=== PATIENT | female | born 2000 | race Caucasian/White ===

== ENCOUNTER 2025-09-03 21:06 | Emergency (ER) | payer OTHER, SELFPAY ==
[2025-09-03 22:01] VITALS: BP 116/80; PULSE 104; RESP 18; TEMP 37.4; O2SAT 98; BMI 26.3
[2025-09-03 23:19] LABS: Collection Type, Urine Clean Catch
[2025-09-03 23:32] LABS: Bacteria,Urine Rare; Bilirubin,Urine Negative (Negative); Blood,Urine 2+ (Negative); Clarity,Urine Clear (Clear/Hazy); Color,Urine Lt-Yellow (Lt Yel-Yel); Glucose, Urine Negative (Negative); Ketones,Urine Negative (Negative); Leukocyte Esterase,Urine Positive (Negative); Nitrite,Urine Negative (Negative); PH,Urine 6.5 (5.0-7.0); Protein,Urine Negative (Neg - Trace); RBC,Urine 8 /hpf (0-3); Specific Gravity,Urine 1.004 (1.001-1.035); Squamous Epithelial Cell,Urine 1 /hpf (0-5); Urobilinogen,Urine Negative mg/dL (0.0-1.0); WBC,Urine 39 /hpf (0-5)
--- NOTE | 2025-09-03 23:44 | PD.EDADULT ---
ED General RME/HPI General Chief complaint: General Adult/Misc Complain Stated complaint: FEVER, BACK PAIN Time Seen by Provider: 09/03/25 22:01 Source: patient and family Arrival date/time: 09/03/25 21:06 Mode of arrival: ambulatory Limitations: no limitations RME / HPI RME / HPI narrative: This patient is a pleasant 24-year-old female who arrives to the ED today for evaluation of back pain that radiates to her stomach as well as intermittent fever events for the past 2 days. Patient states intermittent nausea over that time as well. At arrival, patient was afebrile and mildly tachycardic. Related Data Previous Rx's ?Medication ?Instructions ?Recorded acetaminophen 500 mg tablet 500 mg PO Q4H PRN fever or pain 09/03/25 (Tylenol Extra Strength) #30 tabs nitrofurantoin 100 mg PO Q12H 7 days #14 caps 09/03/25 monohydrate/macrocrystals 100 mg capsule (Macrobid) ondansetron 4 mg disintegrating 4 mg PO Q6H PRN nausea and 09/03/25 tablet vomiting #10 tabs Allergies Allergy/AdvReac Type Severity Reaction Status Date / Time No Known Allergies Allergy Verified 09/03/25 21:07 Review of Systems Review of Systems Systems Reviewed: All systems reviewed, normal except as documented Past Medical History Social History SMOKING STATUS: Never smoker ED Exam General Limitations: Present no limitations General appearance: Present alert and in distress (Patient appears to be in mild to moderate distress due to back and belly pain concerns.) Head Head exam: Present atraumatic Eye Eye exam: Present normal appearance, PERRL and EOMI ENT ENT exam: Present normal exam, normal oropharynx and mucous membranes moist Neck Neck exam: Present normal inspection, full ROM and trachea midline Chest Chest inspection: Present normal inspection and symmetric chest wall rise Respiratory Respiratory exam: Present normal lung sounds bilaterally Cardiovascular Cardiovascular exam: Present regular rate, normal rhythm and normal heart sounds Abdominal Exam Abdominal exam: Present other (Nonspecific diffuse bilateral lower abdomen/pelvic tenderness to palpation. Pain radiates towards the back. No signs of trauma.) Extremities Exam Extremities exam: Present normal inspection and full ROM Back Exam Back exam: Present normal inspection, full ROM and other (Nonspecific CVA tenderness to palpation but rather, inferior regional tenderness that may be radiating to the stomach or from the stomach to the back. No signs of trauma.) Neurological Exam Neurological exam: Present alert, oriented X3 and CN II-XII intact Psychiatric Psychiatric exam: Present normal affect and normal mood Skin Skin exam: Present warm, dry, intact and normal color Course Quality Measures none Orders Category Date Time Status Bedside COVID-19 Antigen Test NOW Care 09/03/25 22:04 Active Bedside Influenza A&B Antigen Test NOW Care 09/03/25 22:04 Completed UA [Urinalysis] Stat Lab 09/03/25 23:11 Completed Nitrofurantoin Macro [Macrobid] Med 09/03/25 23:43 Once 100 mg PO X1 ONE As noted above Vital Signs Vital signs: Vital Signs Temperature 99.4 F 09/03/25 22:01 Pulse Rate 104 H 09/03/25 22:01 Respiratory Rate 18 09/03/25 22:01 Blood Pressure 116/80 09/03/25 22:01 Pulse Oximetry (%) 98 09/03/25 22:01 Oxygen Delivery Method Room Air 09/03/25 22:01 As noted above Discharge Plan Plan Patient Disposition: HOME (Self Care) Prescriptions/Referrals Prescriptions/Med Rec: New nitrofurantoin monohyd/m-cryst [Macrobid] 100 mg capsule 100 mg PO Q12H 7 Days Qty: 14 0RF Rx Instructions: must administer with a meal/food acetaminophen [Tylenol Extra Strength] 500 mg tablet 500 mg PO Q4H PRN (Reason: fever or pain) Qty: 30 0RF ondansetron 4 mg tablet,disintegrating 4 mg PO Q6H PRN (Reason: nausea and vomiting) Qty: 10 0RF Referrals: No Primary/Family,Physician [Primary Care Provider] - In 1 week Problem List Clinical Impression: Urinary tract infection Patient/Caregiver Discharge Instructions Education Materials: Urinary Tract Infections in Women Additional Instructions: Advised patient advised antibiotics as directed and to completion as well as additional medication as needed. Print Language: Vietnamese Stand Alone Forms: [employer] Info., Patient Portal Info Letter MDM Narrative MDM hospital course (for use when minimal MDM required): All studies performed the ED were evaluated by me personally. Urinalysis was positive for UTI. COVID and influenza swabs were negative. Patient was given her first dose of antibiotics prior to discharge. Advised patient utilize antibiotics as directed and to completion as well as pain medication as needed. Clinical Information Provided by: patient Medical Records reviewed None Meds/Rx considered, not ordered None Labs/Rad/Tests considered, not ordered None Chronic Illness/Social Conditions which may negatively complicate care or outcome(s)-explain: None or not applicable EKG EKG not done Labs Labs: interpreted by me Lab(s) Interpretation(s): Positive for urinary tract infection Imaging Imaging interpretation: none Medication Administration(s) Medication Administration History Nitrofurantoin Macrocrystals (Nitrofurantoin Macro 100 Mg Capsule) 100 mg PO X1 ONE Stop: 09/03/25 23:44 As noted above Diagnosis Differential Diagnosis ED Complaint MDM: Urinary tract infection, COVID-19, influenza
[2025-09-03] MEDS: NITROFURANTOIN MACRO 100 MG CAPSULE PO (23:58)
== END 2025-09-04 | disposition home or self-care (01) ==
PROVIDERS: Emergency Provider Physician Assistant
DX: N39.0 Urinary tract infection, site not specified (principal)
CPT/HCPCS: 81001; 87502; 87635; 99282; A9270